=== PATIENT | male | born 1945 | race Caucasian/White ===

== ENCOUNTER 2024-02-21 12:41 | Inpatient (IN) | payer MEDICARE ==
[2024-02-21 13:12] LABS: Basophils # (A) 0.1 k/uL (0-0.2); Basophils % (A) 1 %; Eosinophils # (A) 0.2 k/uL (0-0.7); Eosinophils % (A) 3 %; HCT 48.8 % (39.0-53.0); HGB 15.4 gm/dL (13.0-17.5); Lymphocytes # (A) 1.2 k/uL (1.0-4.8); Lymphocytes % (A) 19 %; MCH 30.6 pg (25.0-35.0); MCHC 31.5 g/dL (31.0-37.0); Mean Platelet Volume 7.2; Monocytes # (A) 0.6 k/uL (0-1.0); Monocytes % (A) 10 %; Neutrophils # (A) 3.8 k/uL (1.3-7.7); Neutrophils % (A) 63 %; Platelet Count 287 k/uL (150-450); RBC 5.03 m/uL (4.30-5.90); RDW 12.2 % (11.5-15.5); WBC 6.1 k/uL (3.8-10.6)
--- NOTE | 2024-02-21 13:20 | ED ---
SOB HPI - General Source: patient, RN notes reviewed, old records reviewed Mode of arrival: wheelchair Limitations: no limitations <Neto Abdul - Last Filed: 02/21/24 13:19> - General Source: patient, family, RN notes reviewed Limitations: no limitations <Joel Apple - Last Filed: 02/21/24 18:06> - General Chief Complaint: Shortness of Breath Stated Complaint: PATRICIA - History of Present Illness Initial Comments: QN 78 male to ER for evaluation of significant shortness of breath sent in by family doctor with worsening shortness of breath for a few days now with decreased activity level weakness and family stating that he appearing a little off-color, more pale than normal (Neto Abdul) Patient is an 78-year-old male presenting to the emergency department difficulty breathing. Onset of symptoms was chronic, worse the past couple of days. Dyspnea does worsen with exertion. Patient does have cough with occasional sputum, unclear color. No fevers. Patient does have history of similar symptoms previously associated with COPD. No calf pain or swelling. (Joel Apple) - Related Data Home Medications Medication Instructions Recorded Confirmed Aspirin EC [Ecotrin Low Dose] 81 mg PO DAILY@79902/21/24 02/21/24 Cholecalciferol [Vitamin D3 (125 125 mcg PO DAILY@79902/21/24 02/21/24 Mcg = 5000 Iu)] Cyanocobalamin (Vitamin B-12) 1,000 mcg PO DAILY@79902/21/24 02/21/24 [Vitamin B-12] Escitalopram [Lexapro] 20 mg PO DAILY@79902/21/24 02/21/24 Fluticasone/Umeclidin/Vilanter 1 puff INHALATION RT-DAILY@79902/21/24 02/21/24 [Trelegy Ellipta 100-62.5-25] Tamsulosin [Flomax] 0.4 mg PO HS@199902/21/24 02/21/24 lisinopriL [Zestril] 2.5 mg PO DAILY@79902/21/24 02/21/24 Allergies Allergy/AdvReac Type Severity Reaction Status Date / Time Sulfa (Sulfonamide Allergy Swelling Verified 02/21/24 15:01 Antibiotics) Review of Systems ROS Other: All systems not noted in ROS Statement are negative. <Neto Abdul - Last Filed: 02/21/24 13:19> ROS Other: All systems not noted in ROS Statement are negative. Constitutional: Denies: fever Eyes: Denies: eye pain ENT: Denies: ear pain Respiratory: Reports: as per HPI, cough, dyspnea Cardiovascular: Denies: chest pain Endocrine: Reports: fatigue Gastrointestinal: Denies: abdominal pain Skin: Denies: rash <Joel Apple - Last Filed: 02/21/24 18:06> ROS Statement: Those systems with pertinent positive or pertinent negative responses have been documented in the HPI. Past Medical History Past Medical History: COPD History of Any Multi-Drug Resistant Organisms: None Reported Additional Past Surgical History / Comment(s): cyst removal, dental extraction Past Psychological History: No Psychological Hx Reported Smoking Status: Former smoker Past Alcohol Use History: None Reported Past Drug Use History: None Reported <Neto Abdul - Last Filed: 02/21/24 13:19> General Exam Limitations: no limitations General appearance: alert, in no apparent distress Head exam: Present: atraumatic, normocephalic, normal inspection Eye exam: Present: normal appearance, PERRL, EOMI. Absent: scleral icterus, conjunctival injection, periorbital swelling ENT exam: Present: normal exam, mucous membranes moist Neck exam: Present: normal inspection. Absent: tenderness, meningismus, lymphadenopathy Respiratory exam: Present: normal lung sounds bilaterally. Absent: respiratory distress, wheezes, rales, rhonchi, stridor Cardiovascular Exam: Present: regular rate, normal rhythm, normal heart sounds. Absent: systolic murmur, diastolic murmur, rubs, gallop, clicks GI/Abdominal exam: Present: soft, normal bowel sounds. Absent: distended, ten derness, guarding, rebound, rigid Extremities exam: Present: normal inspection, full ROM, normal capillary refill. Absent: tenderness, pedal edema, joint swelling, calf tenderness Back exam: Present: normal inspection Neurological exam: Present: alert, oriented X3, CN II-XII intact Psychiatric exam: Present: normal affect, normal mood Skin exam: Present: warm, dry, intact, normal color. Absent: rash <Neto Abdul - Last Filed: 02/21/24 13:19> Limitations: no limitations General appearance: alert, in no apparent distress Head exam: Present: normocephalic Eye exam: Present: normal appearance Neck exam: Present: normal inspection Respiratory exam: Present: wheezes, decreased breath sounds Cardiovascular Exam: Present: regular rate, normal rhythm GI/Abdominal exam: Present: soft. Absent: tenderness Extremities exam: Present: normal inspection. Absent: pedal edema, calf tenderness Neurological exam: Present: alert Psychiatric exam: Present: normal affect, normal mood Skin exam: Present: normal color <Joel Apple - Last Filed: 02/21/24 18:06> Course <Neto Abdul - Last Filed: 02/21/24 13:19> Vital Signs 02/21/24 02/21/24 02/21/24 12:44 14:40 15:14 Temperature 98.0 F Pulse Rate 59 L 56 L 56 L Respiratory 18 18 Rate Blood Pressure 105/65 125/68 O2 Sat by Pulse 92 L 91 L Oximetry 02/21/24 02/21/24 02/21/24 15:30 16:00 17:00 Temperature Pulse Rate 60 82 72 Respiratory 18 18 Rate Blood Pressure 134/77 113/67 O2 Sat by Pulse 87 L 97 Oximetry - Reevaluation(s) Reevaluation #1: 02/21/24 13:20 QN completed by myself Dr. Abdul (Neto Abdul) Procedures - ABG Interpretation Ph: 7.39 PCO2: 37.2 PO2: 51.1 <Joel Apple - Last Filed: 02/21/24 18:06> Medical Decision Making - Lab Data Result diagrams: 02/21/24 13:02 <Neto Abdul - Last Filed: 02/21/24 13:19> - Lab Data Result diagrams: 02/21/24 13:02 02/21/24 13:02 <Joel Apple - Last Filed: 02/21/24 18:06> - Medical Decision Making EKG interpreted by myself shows sinus bradycardia with a rate of 59. Normal axis. Normal intervals. Normal QRS. No acute ST change. Was pt. sent in by a medical professional or institution (, PA, ADVERTISING DISPLAY ROTATOR, urgent care, hospital, or [facility]...) When possible be specific @ -Patient was at [facility] home Did you speak to anyone other than the patient for history (EMS, parent, family, police, friend...)? What history was obtained from this source @ -Family is present helps provide history including hypoxic Did you review nursing and triage notes (agree or disagree)? Why? @ -I reviewed and agree with nursing and triage notes Were old charts reviewed (outside hosp., previous admission, EMS record, old EKG, old radiological studies, urgent care reports/EKG's, [facility] records)? Report findings @ -No old charts were reviewed Differential Diagnosis (chest pain, altered mental status, abdominal pain women, abdominal pain men, vaginal bleeding, weakness, fever, dyspnea, syncope, headache, dizziness, GI bleed, back pain, seizure, CVA, palpatations, mental health, musculoskeletal)? @ -Differential Dyspnea: Coronary syndrome, arrhythmia, tamponade, asthma, COPD, pulmonary embolism, pneumonia, pneumothorax, pulmonary effusion, anaphylaxis, diabetic ketoacidosis, flailed chest, pulmonary contusion, diaphragmatic rupture, anemia, neuromuscular, this is not meant to be an all-inclusive list. EKG interpreted by me (3pts min.). @ -As above X-rays interpreted by me (1pt min.). @ -Chest x-ray showed no acute process CT interpreted by me (1pt min.). @ -None done U/S interpreted by me (1pt. min.). @ -None done What testing was considered but not performed or refused? (CT, X-rays, U/S, labs)? Why? @ -None What meds were considered but not given or refused? Why? @ -None Did you discuss the management of the patient with other professionals (professionals i.e. , PA, ADVERTISING DISPLAY ROTATOR, lab, RT, psych nurse, social problems specialist, instructor adjunct surgical technician, teacher, special loan officer, manager of case management)? Give summary @ -Case was discussed with Dr. Cunningham who will admit covering hospital for Was smoking cessation discussed for >3mins.? @ -No Was critical care preformed (if so, how long)? @ -No Were there social determinants of health that impacted care today? How? (Homelessness, low income, unemployed, alcoholism, drug addiction, transportation, low edu. Level, literacy, decrease access to med. care, [facility], rehab)? @ -No Was there de-escalation of care discussed even if they declined (Discuss DNR or withdrawal of care, Hospice)? DNR status @ -No What co-morbidities impacted this encounter? (DM, HTN, Smoking, COPD, CAD, Cancer, CVA, ARF, Chemo, Hep., AIDS, mental health diagnosis, sleep apnea, morbid obesity)? @ -COPD history Was patient admitted / discharged? Hospital course, mention meds given and route, prescriptions, significant lab abnormalities, going to OR and other pert inent info. @ -Patient presents with hypoxia and dyspnea. Symptoms improved with nebulizer. Blood gas following this shows continued hypoxia. Patient will be admitted with pulmonary consult. Admission orders written. Undiagnosed new problem with uncertain prognosis? @ -No Drug Therapy requiring intensive monitoring for toxicity (Heparin, Nitro, Insulin, Cardizem)? @ -No Were any procedures done? @ -No Diagnosis/symptom? @ -Hypoxia, COPD Acute, or Chronic, or Acute on Chronic? @ -Acute, acute Uncomplicated (without systemic symptoms) or Complicated (systemic symptoms)? @ -Default Side effects of treatment? @ -No Exacerbation, Progression, or Severe Exacerbation? @ -Exacerbation of COPD Poses a threat to life or bodily function? How? (Chest pain, [place], GA, pneumonia, PE, COPD, DKA, ARF, appy, cholecystitis, CVA, Diverticulitis, Homicidal, Suicidal, threat to staff... and all critical care pts) @ -Threat to pulmonary function (Joel Apple) - Lab Data Lab Results 02/21/24 02/21/24 02/21/24 Range/Units 13:02 13:02 13:02 WBC 6.1 (3.8-10.6) k/uL RBC 5.03 (4.30-5.90) m/uL Hgb 15.4 (13.0-17.5) gm/dL Hct 48.8 (39.0-53.0) % MCV 97.0 (80.0-100.0) fL MCH 30.6 (25.0-35.0) pg MCHC 31.5 (31.0-37.0) g/dL RDW 12.2 (11.5-15.5) % Plt Count 287 (150-450) k/uL MPV 7.2 Neutrophils % 63 % Lymphocytes % 19 % Monocytes % 10 % Eosinophils % 3 % Basophils % 1 % Neutrophils # 3.8 (1.3-7.7) k/uL Lymphocytes # 1.2 (1.0-4.8) k/uL Monocytes # 0.6 (0-1.0) k/uL Eosinophils # 0.2 (0-0.7) k/uL Basophils # 0.1 (0-0.2) k/uL PT 9.9 L (10.0-12.5) sec INR 0.9 (<1.2) APTT 27.0 (22.0-30.0) sec Sample Site ABG pH (7.35-7.45) ABG pCO2 (35-45) mmHg ABG pO2 (83-108) mmHg ABG HCO3 (21-25) mmol/L ABG Total CO2 (19-24) mmol/L ABG O2 Saturation (94-97) % ABG Base Excess mmol/L Bob Test FiO2 % Sodium 139 (137-145) mmol/L Potassium 5.3 H (3.5-5.1) mmol/L Chloride 106 (98-107) mmol/L Carbon Dioxide 27 (22-30) mmol/L Anion Gap 6 mmol/L BUN 29 H (9-20) mg/dL Creatinine 1.30 H (0.66-1.25) mg/dL Est GFR (CKD-EPI)AfAm 60 (>60 ml/min/1.73 sqM) Est GFR (CKD-EPI)NonAf 52 (>60 ml/min/1.73 sqM) Glucose 97 (74-99) mg/dL Calcium 9.0 (8.4-10.2) mg/dL Total Bilirubin 0.4 (0.2-1.3) mg/dL AST 24 (17-59) U/L ALT 10 (4-49) U/L Alkaline Phosphatase 101 (38-126) U/L Troponin I (0.000-0.034) ng/mL NT-Pro-B Natriuret Pep pg/mL Total Protein 7.0 (6.3-8.2) g/dL Albumin 4.0 (3.5-5.0) g/dL 02/21/24 02/21/24 02/21/24 Range/Units 13:02 13:02 17:00 WBC (3.8-10.6) k/uL RBC (4.30-5.90) m/uL Hgb (13.0-17.5) gm/dL Hct (39.0-53.0) % MCV (80.0-100.0) fL MCH (25.0-35.0) pg MCHC (31.0-37.0) g/dL RDW (11.5-15.5) % Plt Count (150-450) k/uL MPV Neutrophils % % Lymphocytes % % Monocytes % % Eosinophils % % Basophils % % Neutrophils # (1.3-7.7) k/uL Lymphocytes # (1.0-4.8) k/uL Monocytes # (0-1.0) k/uL Eosinophils # (0-0.7) k/uL Basophils # (0-0.2) k/uL PT (10.0-12.5) sec INR (<1.2) APTT (22.0-30.0) sec Sample Site Left Radial ABG pH 7.40 (7.35-7.45) ABG pCO2 37 (35-45) mmHg ABG pO2 51 L* (83-108) mmHg ABG HCO3 23 (21-25) mmol/L ABG Total CO2 24 (19-24) mmol/L ABG O2 Saturation 86.1 L (94-97) % ABG Base Excess -1.5 mmol/L Bob Test Yes FiO2 21 % Sodium (137-145) mmol/L Potassium (3.5-5.1) mmol/L Chloride (98-107) mmol/L Carbon Dioxide (22-30) mmol/L Anion Gap mmol/L BUN (9-20) mg/dL Creatinine (0.66-1.25) mg/dL Est GFR (CKD-EPI)AfAm (>60 ml/min/1.73 sqM) Est GFR (CKD-EPI)NonAf (>60 ml/min/1.73 sqM) Glucose (74-99) mg/dL Calcium (8.4-10.2) mg/dL Total Bilirubin (0.2-1.3) mg/dL AST (17-59) U/L ALT (4-49) U/L Alkaline Phosphatase (38-126) U/L Troponin I <0.012 (0.000-0.034) ng/mL NT-Pro-B Natriuret Pep 215 pg/mL Total Protein (6.3-8.2) g/dL Albumin (3.5-5.0) g/dL Disposition <Neto Abdul - Last Filed: 02/21/24 13:19> Is patient prescribed a controlled substance at d/c from ED?: No Time of Disposition: 18:06 <Joel Appel - Last Filed: 02/21/24 18:06> Clinical Impression: Acute exacerbation of chronic obstructive pulmonary disease Disposition: ADMITTED IP TO THIS HOSP Condition: Serious Referrals: None,Stated [Primary Care Provider] - 1-2 days
[2024-02-21 13:23] LABS: INR 0.9 (<1.2); Prothrombin Time 9.9 sec (10.0-12.5)
[2024-02-21 13:32] LABS: ALT 10 U/L (4-49); AST 24 U/L (17-59); African American GFR (CKD) 60 (>60 ml/min/1.73 sqM); Alkaline Phosphatase 101 U/L (38-126); Anion Gap 6 mmol/L; Blood Urea Nitrogen 29 mg/dL (9-20); Carbon Dioxide 27 mmol/L (22-30); Chloride 106 mmol/L (98-107); Glucose 97 mg/dL (74-99); Non-African American GFR(CKD) 52 (>60 ml/min/1.73 sqM); Potassium 5.3 mmol/L (3.5-5.1); Sodium 139 mmol/L (137-145); Total Bilirubin 0.4 mg/dL (0.2-1.3)
--- NOTE | 2024-02-21 13:46 | XR ---
EXAMINATION TYPE: XR chest 2V DATE OF EXAM: 02/21/2024 COMPARISON: NONE HISTORY: Shortness of breath TECHNIQUE: Frontal and lateral views of the chest are obtained. FINDINGS: Scattered senescent parenchymal changes noted. Hyperinflation compatible with COPD. No evidence for infiltrate. No evidence for atelectasis. Heart size is stable. Mediastinal structures are stable and grossly unremarkable. No evidence for hilar prominence. Degenerative changes dorsal spine. IMPRESSION: 1. No evidence for acute pulmonary disease.
[2024-02-21] MEDS: SODIUM CHLORIDE 0.9% 1,000 ML IV STA (14:38)
[2024-02-21] MEDS: methylPREDNISolone SOD SUCCI 125 MG/2 ML VIAL IV STA (14:39)
[2024-02-21] MEDS: IPRATROPIUM-ALBUTEROL 3 ML NEB INHALATION STA (15:13)
[2024-02-21 17:12] LABS: ABG Base Excess -1.5 mmol/L; ABG HCO3 23 mmol/L (21-25); ABG Oxygen Saturation 86.1 % (94-97); ABG PCO2 37 mmHg (35-45); ABG TCO2 24 mmol/L (19-24); Allen Test Performed? Yes
[2024-02-21 17:14] LABS: ABG PO2 51 mmHg (83-108)
[2024-02-21] MEDS ORDERED: IPRATROPIUM-ALBUTEROL 3 ML NEB INHALATION PRN (18:06)
[2024-02-21] MEDS ORDERED: ACETAMINOPHEN TAB 325 MG TAB PO PRN (18:06)
[2024-02-21] MEDS ORDERED: NALOXONE 0.4 MG/ML 1 ML VIAL IVP PRN (18:06)
[2024-02-21] MEDS: TAMSULOSIN 0.4 MG CAP.ER.24H PO SCH (19:45)
[2024-02-21] MEDS: DOXYCYCLINE 100 MG CAP PO SCH (20:11)
[2024-02-21] MEDS: IPRATROPIUM-ALBUTEROL 3 ML NEB INHALATION SCH (20:18)
[2024-02-21] MEDS: SYMBICORT 80-4.5 MCG INHALER INHALATION SCH (20:18)
[2024-02-21] MEDS: methylPREDNISolone SOD SUCCI 125 MG/2 ML VIAL IV SCH (23:09)
[2024-02-21] MEDS: SODIUM CHLORIDE 0.9% 1,000 ML IV SCH (23:55)
--- NOTE | 2024-02-22 00:45 | HP ---
HISTORY AND PHYSICAL HISTORY OF PRESENT ILLNESS: This 78-year-old white male came to the hospital with increasing shortness of breath in last few days. Decreased activity level, weakness, . He has been little bit off, more than normal. He presents to ER with difficulty breathing. He had elevated GFR. CTA chest results pending. Dyspnea worsens with exertion, has cough with occasional sputum. Some mild swelling in his legs. HOME MEDICINES: 1. Aspirin. 2. Vitamin D3. 3. Vitamin B12. 4. Lexapro 20 daily. 5. Trelegy one puff daily. 6. Flomax 0.4 daily. 7. Zestril 2.5 daily. ALLERGIES: Sulfa. REVIEW OF SYSTEMS: A 14-point review of systems otherwise negative. PAST MEDICAL HISTORY: COPD, plantar fascia cyst removal. SOCIAL HISTORY: Former smoker. PHYSICAL EXAMINATION: GENERAL: On nebulizer treatment right now. HEENT: Head normocephalic, atraumatic. Pupils equal, round, reactive. VITAL SIGNS: Reviewed. Temperature 98.0, blood pressure 105/65, O2 90 to 91 on room air, at 88 on room air on admission, pulse 60s. LUNGS: Scattered rhonchi and wheeze. CARDIOVASCULAR: S1, S2. GI: Soft, normal bowel sounds. Mildly distended abdomen. Mild guarding. EXTREMITIES: 2+ edema. PSYCH: Fair mood and affect. NEUROLOGIC: Alert and oriented x3. LABORATORY DATA: Elevated D-dimer. CTA of the chest, getting IV steroids, updraft, oral doxycycline. Prognosis guarded. MMODL / IJN: [id number] /
--- NOTE | 2024-02-22 03:33 | CT ---
EXAM: CT Angiography Chest With Intravenous Contrast CLINICAL HISTORY: ITS.REASON CT Reason: hgigh ds-dimer TECHNIQUE: Axial computed tomographic angiography images of the chest with intravenous contrast. CTDI is 11.2 mGy and DLP is 261.2 mGy-cm. This CT exam was performed using one or more of the following dose reduction techniques: automated exposure control, adjustment of the mA and/or kV according to patient size, and/or use of iterative reconstruction technique. MIP reconstructed images were created and reviewed. COMPARISON: No relevant prior studies available. FINDINGS: Pulmonary arteries: Unremarkable. No acute pulmonary embolism. Aorta: Atherosclerotic changes of the aorta. No thoracic aortic aneurysm. Lungs: Severe centrilobular emphysema. No mass. No consolidation. Pleural space: Unremarkable. No significant effusion. No pneumothorax. Heart: Unremarkable. No cardiomegaly. No significant pericardial effusion. No evidence of RV dysfunction. Bones/joints: Degenerative changes of the spine. No acute fracture. No dislocation. Soft tissues: Unremarkable. Lymph nodes: Unremarkable. No enlarged lymph nodes. Liver: Hepatic and renal cysts. IMPRESSION: 1. No acute pulmonary embolism. 2. Severe centrilobular emphysema.
--- NOTE | 2024-02-22 04:40 | P.CNPUL ---
History of Present Illness Consult date: 02/22/24 Requesting physician: Joel Apple Reason for consult: COPD Chief complaint: Shortness of breath History of present illness: Patient is an 78-year-old white male with past medical history significant for COPD. According to ER documentation, patient was noted to be significantly short of breath at his primary care providers office, and was sent to the emergency department yesterday evening. Patient actually denies this, he is overall a poor historian. Also, hard of hearing. He is unsure of his primary care provider's name. He does admit to history of COPD. He is a former tobacco smoker, quitting about proximately 8 years ago. He has over a [id number] history. He is unsure of his inhalers that he takes at home. Trelegy is listed as a home medication. Denies home oxygen use. Chest x-ray performed on arrival to emergency department did not show any acute cardiopulmonary process. There is hyperinflation consistent with COPD. Patient states that he has been short of breath for years, however, particularly worse over the last couple weeks. He states that he gets short of breath when walking longer distances such as 30 feet. Does report an occasional minimally productive cough with mostly clear sputum. Denies any fevers, chest pain, purulent sputum, hemoptysis. D-dimer was elevated, which incited the CT angio protocol. No acute pulmonary embolism was identified. ABG done in the emergency department, on room air, was consistent with hypoxemia. PaO2 of 51, pCO2 of 37, pH of 7.4. Patient is very hard of hearing. He is alert and oriented x 3, without signs of CO2 narcosis. Resting comfortably on 2 L/min nasal cannula. No documented fevers. CBC unremarkable without leukocytosis. Procalcitonin level is 0.07. BMP: Sodium 139, potassium 5.3, chloride 106, serum bicarb 27, BUN 29, creatinine 1.3, glucose 97. Normal saline is infusing at 75 mL/h. LFTs unremarkable. Troponin less than 0.012. NT proBNP 215. EKG shows normal sinus rhythm with nonspecific ST abnormalities. Overall, unremarkable for acute ischemia. Hemodynamics are stable. Review of Systems REVIEW OF SYSTEMS: CONSTITUTIONAL: Denies any recent significant weight loss or weight gain. EYES: Denies change in vision. EARS, NOSE, MOUTH, THROAT: Denies headaches, denies sore throat. CARDIOVASCULAR: Denies chest pain, palpitations, lightheadedness, syncopal ev ents, lower extremity swelling, orthopnea, PND. RESPIRATORY: See HPI. GASTROINTESTINAL: Denies change in appetite, abdominal pain, nausea and vomiting, or diarrhea GENITOURINARY: Denies hematuria, denies infections. MUSKULOSKELETAL: Denies pain, denies swelling. INTEGUMENTARY: Denies rash, denies eczema. NEUROLOGICAL: Denies recent memory loss, no recent seizure activity. PSYCHIATRIC: Denies anxiety, denies depression. HEMATOLOGIC/LYMPHATIC: Denies anemia, denies enlarged lymph node Past Medical History Past Medical History: COPD History of Any Multi-Drug Resistant Organisms: None Reported Additional Past Surgical History / Comment(s): cyst removal, dental extraction Past Psychological History: No Psychological Hx Reported Smoking Status: Former smoker Past Alcohol Use History: None Reported Past Drug Use History: None Reported Medications and Allergies Home Medications Medication Instructions Recorded Confirmed Type Aspirin EC [Ecotrin Low Dose] 81 mg PO DAILY@79902/21/24 02/21/24 History Cholecalciferol [Vitamin D3 (125 125 mcg PO DAILY@79902/21/24 02/21/24 History Mcg = 5000 Iu)] Cyanocobalamin (Vitamin B-12) 1,000 mcg PO DAILY@79902/21/24 02/21/24 History [Vitamin B-12] Escitalopram [Lexapro] 20 mg PO DAILY@79902/21/24 02/21/24 History Fluticasone/Umeclidin/Vilanter 1 puff INHALATION RT-DAILY@79902/21/24 02/21/24 History [Trelegy Ellipta 100-62.5-25] Tamsulosin [Flomax] 0.4 mg PO HS@199902/21/24 02/21/24 History lisinopriL [Zestril] 2.5 mg PO DAILY@79902/21/24 02/21/24 History Allergies Allergy/AdvReac Type Severity Reaction Status Date / Time Sulfa (Sulfonamide Allergy Swelling Verified 02/21/24 15:01 Antibiotics) Physical Exam Vitals: Vital Signs Temp Pulse Pulse Resp BP BP Pulse Ox 02/22/24 03:00 98.0 F 75 16 116/68 95 02/22/24 01:40 80 18 02/22/24 00:31 98.0 F 80 18 129/65 95 02/21/24 23:11 83 18 98/47 90 L 02/21/24 22:25 84 18 108/90 93 L 02/21/24 21:00 65 02/21/24 20:50 68 02/21/24 19:40 68 19 107/67 93 L 02/21/24 18:00 96 02/21/24 17:00 72 18 113/67 97 02/21/24 16:00 82 18 134/77 87 L 02/21/24 15:30 60 02/21/24 15:14 56 L 02/21/24 14:40 56 L 18 125/68 91 L 02/21/24 12:44 98.0 F 59 L 18 105/65 92 L Intake and Output 02/21/24 02/21/24 02/22/24 14:59 22:59 06:59 Output Total 125 Balance -125 Output: Urine 125 Other: Voiding Method Urinal Weight 68.039 kg GENERAL EXAM: Alert, 78-year-old white male, comfortable in no apparent distress. Hard of hearing. HEAD: Normocephalic and atraumatic EYES: Normal reaction of pupils, equal size. NOSE: Clear with pink turbinates. THROAT: No erythema or exudates. NECK: No masses, no JVD. CHEST: No chest wall deformity. LUNGS: Markedly diminished lung sounds bilaterally and throughout. No crackles, wheeze, rhonchi or dullness. On 2 L/min nasal cannula. No conversational dyspnea or accessory muscle use while at rest CVS: S1 and S2 normal with no audible murmur, regular rhythm. No extra heart sounds ABDOMEN: No hepatosplenomegaly, active bowel sounds, no guarding or rigidity. SPINE: No scoliosis or deformity SKIN: No rashes CENTRAL NERVOUS SYSTEM: No focal deficits, tone is normal in all 4 extremities. EXTREMITIES: There is no peripheral edema, clubbing, or cyanosis. Peripheral pulses are intact. Results - Laboratory Findings CBC and BMP: 02/21/24 13:02 02/21/24 13:02 ABG ABG pH 7.40 (7.35-7.45) 02/21/24 17:00 ABG pCO2 37 mmHg (35-45) 02/21/24 17:00 ABG pO2 51 mmHg (83-108) L* 02/21/24 17:00 ABG O2 Saturation 86.1 % (94-97) L 02/21/24 17:00 PT/INR, D-dimer PT 9.9 sec (10.0-12.5) L 02/21/24 13:02 INR 0.9 (<1.2) 02/21/24 13:02 D-Dimer 1.10 mg/L FEU (<0.60) H 02/21/24 20:55 Abnormal lab findings: Abnormal Labs 02/21/24 02/21/24 02/21/24 13:02 13:02 17:00 PT 9.9 L D-Dimer ABG pO2 51 L* ABG O2 Saturation 86.1 L Potassium 5.3 H BUN 29 H Creatinine 1.30 H 02/21/24 20:55 PT D-Dimer 1.10 H ABG pO2 ABG O2 Saturation Potassium BUN Creatinine - Diagnostic Findings Chest x-ray: image reviewed CT scan - chest: image reviewed Assessment and Plan Assessment: Acute hypoxemic respiratory failure, possibly secondary to acute COPD exacerbation. Chest x-ray on arrival does not show any acute cardiopulmonary process. There is hyperinflation consistent with COPD. No focal infiltrates or evidence of pneumonia. Procalcitonin level low. Elevated D-dimer, CT angio protocol does not identify any acute pulmonary emboli Acute versus chronic kidney disease, creatinine 1.3, without baseline values available History of hypertension History of BPH Hard of hearing History of macular degeneration Former tobacco smoker, with over [id number] history Plan: Patient's medications, labs, imaging were reviewed Continue with supplemental oxygen and wean FiO2 as tolerated. Currently on 2 L/min nasal cannula. Patient has been started on a combination of DuoNebs, Symbicort inhaler, and IV Solu-Medrol Procalcitonin level low. Will likely discontinue empiric doxycycline. IV maintenance fluids to continue. We will continue to follow. I have personally seen and examined the patient, performed the documentation and the assessment and plan as written. Number of minutes spent on the visit:20 Time with Patient: Greater than 30
[2024-02-22 06:17] LABS: Glucose,Whole Blood 192 mg/dL (70-110)
[2024-02-22] MEDS: ASPIRIN 81 MG PO SCH (08:15)
[2024-02-22] MEDS: CHOLECALCIFEROL 125 MCG (5000 IU) TABLET PO SCH (08:15)
[2024-02-22] MEDS: CYANOCOBALAMIN 500 MCG TAB PO SCH (08:15)
[2024-02-22] MEDS: ESCITALOPRAM 20 MG TAB PO SCH (08:15)
[2024-02-22] MEDS: SYMBICORT 160-4.5 MCG INHALER INHALATION SCH (08:27)
[2024-02-22 08:39] LABS: Basophils % (A) 0 %; Eosinophils % (A) 0 %; HCT 46.1 % (39.0-53.0); HGB 14.4 gm/dL (13.0-17.5); Lymphocytes # (A) 0.8 k/uL (1.0-4.8); Lymphocytes % (A) 10 %; MCH 30.3 pg (25.0-35.0); MCHC 31.3 g/dL (31.0-37.0); MCV 96.7 fL (80.0-100.0); Mean Platelet Volume 7.6; Monocytes # (A) 0.2 k/uL (0-1.0); Monocytes % (A) 3 %; Neutrophils # (A) 6.7 k/uL (1.3-7.7); Neutrophils % (A) 87 %; Platelet Count 293 k/uL (150-450); RBC 4.77 m/uL (4.30-5.90); RDW 12.1 % (11.5-15.5); WBC 7.7 k/uL (3.8-10.6)
[2024-02-22 08:56] LABS: ALT 12 U/L (4-49); AST 21 U/L (17-59); African American GFR (CKD) 70 (>60 ml/min/1.73 sqM); Albumin 3.7 g/dL (3.5-5.0); Albumin/Globulin Ratio 1.3; Alkaline Phosphatase 84 U/L (38-126); Anion Gap 7 mmol/L; Blood Urea Nitrogen 29 mg/dL (9-20); Calcium 9.1 mg/dL (8.4-10.2); Carbon Dioxide 24 mmol/L (22-30); Chloride 108 mmol/L (98-107); Globulin 2.8 g/dL; Glucose 164 mg/dL (74-99); Non-African American GFR(CKD) 60 (>60 ml/min/1.73 sqM); Potassium 4.8 mmol/L (3.5-5.1); Sodium 139 mmol/L (137-145); Total Bilirubin 0.3 mg/dL (0.2-1.3); Total Protein 6.5 g/dL (6.3-8.2)
[2024-02-22 12:26] LABS: Glucose,Whole Blood 147 mg/dL (70-110)
--- NOTE | 2024-02-22 14:18 | PN ---
PROGRESS NOTE SUBJECTIVE: This is an 78-year-old white male, he had CTA of the chest due to elevated D-dimer last night. No PE, severe emphysema. Waiting for echo report. OBJECTIVE: VITAL SIGNS: O2 is 91% on 2 L. Temperature 98.1, blood pressure 125/66, and pulse 76 to 84. CARDIOVASCULAR: S1, S2. LUNGS: Decreased breath sounds x4. HEMATOLOGY: Negative for Homans. PSYCH: Fair mood and affect. EXTREMITIES: 2+ edema. Elevated BNP. Waiting for echo. Continue to have breathing treatments, Lasix updrafts. PROGNOSIS: Guarded. Please see further orders. MMODL / IJN: [id number] /
[2024-02-22 17:07] LABS: Glucose,Whole Blood 173 mg/dL (70-110)
[2024-02-22 21:08] LABS: Glucose,Whole Blood 147 mg/dL (70-110)
[2024-02-23 05:53] LABS: Glucose,Whole Blood 134 mg/dL (70-110)
[2024-02-23 07:38] VITALS: BP 115/64; RESP 18; TEMP 97.3
--- NOTE | 2024-02-23 10:44 | CA ---
Transthoracic Echo Report Name: Lázaro Contreras Age: 78 Gender: M : 1945 Exam Date: 02/22/2024 15:08 Exam Location: [facility] Ht (in): 65 Wt (lb): 150 Ordering Physician: Omega Cunningham MD Attending/Referring Phys: Offbearer Tenisha Sharma RDCS Procedure CPT: Indications: dyspnea Cardiac Hx: Technical Quality: Technically difficult study Contrast 1: Definity Total Dose (mL): 1 Contrast 2: Total Dose (mL): MEASUREMENTS (Male / Female) Normal Values 2D ECHO LV Diastolic Diameter PLAX 4.8 cm 4.2 - 5.9 / 3.9 - 5.3 cm LV Systolic Diameter PLAX 3.2 cm IVS Diastolic Thickness 0.7 cm 0.6 - 1.0 / 0.6 - 0.9 cm LVPW Diastolic Thickness 0.9 cm 0.6 - 1.0 / 0.6 - 0.9 cm LV Relative Wall Thickness 0.3 LV Diastolic Volume MOD BP 83.9 cm??? 67 - 155 / 56 - 104 cm??? LV Systolic Volume MOD BP 32.8 cm??? 22 - 58 / 19 - 49 cm??? LV Ejection Fraction MOD BP 60.9 % >= 55 % LV Cardiac Index MOD BP 2272.9 cm???/min???m??? LV Diastolic Volume MOD 4C 91.5 cm??? LV Systolic Volume MOD 4C 33.3 cm??? LV Ejection Fraction MOD 4C 63.6 % LV Cardiac Index MOD 4C 2585.2 cm???/min???m??? LV Diastolic Length 4C 8.1 cm LV Systolic Length 4C 7.1 cm LV Diastolic Volume MOD 2C 70.2 cm??? LV Systolic Volume MOD 2C 28.1 cm??? LV Ejection Fraction MOD 2C 60.0 % LV Cardiac Index MOD 2C 1873.2 cm???/min???m??? LV Diastolic Length 2C 7.3 cm LV Systolic Length 2C 6.1 cm LA Volume 33.0 cm??? 18 - 58 / 22 - 52 cm??? LA Volume Index 18.6 cm???/m??? 16 - 28 cm???/m??? DOPPLER AV Peak Velocity 98.2 cm/s AV Peak Gradient 3.9 mmHg AV Mean Velocity 64.3 cm/s AV Mean Gradient 1.9 mmHg AV Velocity Time Integral 19.0 cm LVOT Peak Velocity 92.2 cm/s LVOT Peak Gradient 3.4 mmHg LVOT Velocity Time Integral 20.6 cm MV Area PHT 3.5 cm??? Mitral E Point Velocity 62.4 cm/s Mitral A Point Velocity 79.3 cm/s Mitral E to A Ratio 0.8 MV Deceleration Time 215.8 ms TR Peak Velocity 340.7 cm/s TR Peak Gradient 46.4 mmHg Right Atrial Pressure 5.0 mmHg Pulmonary Artery Systolic Pressu 51.4 mmHg Right Ventricular Systolic Press 51.4 mmHg FINDINGS Left Ventricle Left ventricular ejection fraction is estimated at 60 %. Left ventricular cavity size normal. Left ventricular wall thickness normal. No obvious regional wall motion abnormalities. Right Ventricle Normal right ventricular size and function. Moderate pulmonary hypertension. Right Atrium Normal right atrial size. Left Atrium Normal left atrial size. Mitral Valve Structurally normal mitral valve. No evidence for mitral valve prolapse. No mitral stenosis. Trace mitral regurgitation. Aortic Valve Trileaflet aortic valve. No aortic valve stenosis or regurgitation. Tricuspid Valve Structurally normal tricuspid valve. No tricuspid stenosis. Trace to mild tricuspid regurgitation. Pulmonic Valve Pulmonic valve not well visualized. Pericardium No pericardial effusion. Aorta Aortic annulus normal. Ascending aorta not well visualized. CONCLUSIONS Left ventricular ejection fraction 60% RVSP 51 Trace mitral regurgitation Trace to mild tricuspid regurgitation No pericardial effusion Previewed by: Dr. Lakhwinder Burgos DO (Electronically Signed) Final Date: 23 February 2024 10:44
[2024-02-23 11:41] LABS: Glucose,Whole Blood 138 mg/dL (70-110)
[2024-02-23 13:11] VITALS: PULSE 72
--- NOTE | 2024-02-23 15:04 | P.PN ---
Subjective Progress Note Date: 02/23/24 Patient is an 78-year-old white male with past medical history significant for COPD. According to ER documentation, patient was noted to be significantly short of breath at his primary care providers office, and was sent to the emergency department yesterday evening. Patient actually denies this, he is overall a poor historian. Also, hard of hearing. He is unsure of his primary care provider's name. He does admit to history of COPD. He is a former tobacco smoker, quitting about proximately 8 years ago. He has over a [id number] history. He is unsure of his inhalers that he takes at home. Trelegy is listed as a home medication. Denies home oxygen use. Chest x-ray performed on arrival to emergency department did not show any acute cardiopulmonary process. There is hyperinflation consistent with COPD. Patient states that he has been short of breath for years, however, particularly worse over the last couple weeks. He states that he gets short of breath when walking longer distances such as 30 feet. Does report an occasional minimally productive cough with mostly clear sputum. Denies any fevers, chest pain, purulent sputum, hemoptysis. D-dimer was elevated, which incited the CT angio protocol. No acute pulmonary embolism was identified. ABG done in the emergency department, on room air, was consistent with hypoxemia. PaO2 of 51, pCO2 of 37, pH of 7.4. Patient is very hard of hearing. He is alert and oriented x 3, without signs of CO2 narcosis. Resting comfortably on 2 L/min nasal cannula. No documented fevers. CBC unremarkable without leukocytosis. Procalcitonin level is 0.07. BMP: Sodium 139, potassium 5.3, chloride 106, serum bicarb 27, BUN 29, creatinine 1.3, glucose 97. Normal saline is infusing at 75 mL/h. LFTs unremarkable. Troponin less than 0.012. NT proBNP 215. EKG shows normal sinus rhythm with nonspecific ST abnormalities. Overall, unremarkable for acute ischemia. Hemodynamics are stable. The patient is seen today at February 23, 2024 in follow-up on the regular medical floor. He is awake and alert in no acute distress. He denies any worsening shortness of breath, cough or congestion. He is maintaining O2 saturations in the 90s on 2 L/min per nasal cannula. He has been afebrile. Hemodynamically stable. Glucose 134. He is continued on DuoNeb inhalations, Pulmicort and Perforomist inhalations, Solu-Medrol. Objective - Vital Signs Vital signs: Vital Signs Temp 97.3 F L 02/23/24 07:37 Pulse 72 02/23/24 13:11 Resp 18 02/23/24 07:37 BP 115/64 02/23/24 07:37 Pulse Ox 94 L 02/23/24 11:24 FiO2 Intake & Output 02/22/24 02/23/24 02/23/24 18:59 06:59 18:59 Intake Total 120 Output Total 1550 300 Balance 120 -1550 -300 Weight 68.039 kg Intake: Oral 120 Output: Urine 1550 300 Other: Voiding Method Urinal Toilet # Voids 1 2 1 - Exam GENERAL EXAM: Alert, pleasant 78-year-old male, on 2 L nasal cannula, comfortable in no apparent distress. Hard of hearing. HEAD: Normocephalic and atraumatic EYES: Normal reaction of pupils, equal size. NOSE: Clear with pink turbinates. THROAT: No erythema or exudates. NECK: No masses, no JVD. CHEST: No chest wall deformity. LUNGS: Markedly diminished lung sounds bilaterally and throughout. No crackles, wheeze, rhonchi or dullness. CVS: S1 and S2 normal with no audible murmur, regular rhythm. No extra heart sounds ABDOMEN: No hepatosplenomegaly, active bowel sounds, no guarding or rigidity. SPINE: No scoliosis or deformity SKIN: No rashes CENTRAL NERVOUS SYSTEM: No focal deficits, tone is normal in all 4 extremities. EXTREMITIES: There is no peripheral edema, clubbing, or cyanosis. Peripheral pu lses are intact. - Labs CBC & Chem 7: 02/22/24 07:53 02/22/24 07:53 Labs: Abnormal Lab Results - Last 24 Hours (Table) 02/22/24 02/22/24 02/23/24 Range/Units 17:05 21:06 05:52 POC Glucose (mg/dL) 173 H 147 H 134 H (70-110) mg/dL 02/23/24 Range/Units 11:39 POC Glucose (mg/dL) 138 H (70-110) mg/dL Assessment and Plan Assessment: Acute hypoxemic respiratory failure, possibly secondary to acute COPD exacerbation. Chest x-ray on arrival does not show any acute cardiopulmonary process. There is hyperinflation consistent with COPD. No focal infiltrates or evidence of pneumonia. Procalcitonin level low Elevated D-dimer, CT angio protocol does not identify any acute pulmonary emboli Acute versus chronic kidney disease, creatinine 1.3, without baseline values available History of hypertension History of BPH Hard of hearing History of macular degeneration Former tobacco smoker, with over [id number] history Plan: The patient was seen and evaluated Medications and labs reviewed Cleared for discharge from the pulmonary standpoint Titrate the FiO2 as tolerated May require home oxygen Continue his home Trelegy Completed prednisone taper Follow-up in our office in 1 week I have personally seen and examined the patient, performed the documentation and the assessment and plan as written. Number of minutes spent on the visit: 10.
[2024-02-24] MEDS ORDERED: methylPREDNISolone 4 MG TAB TAPER PO SCH (09:00)
[2024-02-24] MEDS ORDERED: predniSONE 20 MG TAB PO SCH (09:00)
== END 2024-02-23 14:16 | disposition home or self-care (01) | DRG 190 ==
LOC: EC 12:41 → 1SOBS 18:08 → 4SSUR 23:33 → OBSVTOIN 02-22 10:04
PROVIDERS: ADMIT Family Medicine; ATTEND Family Medicine
DX: J44.1 Chronic obstructive pulmonary disease with (acute) exacerbation (principal); J96.01 Acute respiratory failure with hypoxia; H91.90 Unspecified hearing loss, unspecified ear; I10 Essential (primary) hypertension; N40.0 Benign prostatic hyperplasia without lower urinary tract symptoms; Z79.82 Long term (current) use of aspirin; Z79.899 Other long term (current) drug therapy; Z87.891 Personal history of nicotine dependence; Z88.2 Allergy status to sulfonamides
CPT/HCPCS: 36415; 36600; 71046; 71275; 80053; 82805; 83880; 84145; 84484; 85025; 85379; 85610; 85730; 87636; 93005; 93306; 94640; 96361; 96374; 96375; 96376; 99285